=== PATIENT | female | born 1980 | race Caucasian/White ===

== ENCOUNTER 2016-12-06 21:56 | Emergency (ER) | payer OTHER ==
[2016-12-06 22:02] VITALS: BP 152/84
--- NOTE | 2016-12-06 22:20 | PROVIDER DOCUMENTATION ---
HPI-Musculoskeletal Pain/Inj - GENERAL Chief Complaint: Extremity Pain Stated Complaint: LT HAND SWOLLEN Time Seen by Provider: 12/06/16 22:11 Source: patient - HX OF PRESENT ILLNESS-MUSKULOSKELTAL Nature of Presenting Problem: 36 y/o F with history of no chronic medical problems presents with left hand pain x 1 day. Last night before bed noticed tenderness of the left hand. Pain became worse today with numbness/tingling of 4th and 5th fingers that lasted approx 1 hour and has now completely resolved. Pain is radiating into left forearm. Immobilization improves pain, movement worsens. Took aleve at home with no relief. No history of injury or trauma, but patient does admit to resting her left elbow on the car door when smoking while driving frequently. Quality of Pain: reports: aching Severity in ED: moderate Onset/Duration: 24 hours ago Timing: still present Modifying Factors: improves with: immobilization (improves), movement (worsens) Any recent injury?: No Review of Systems - Adult - REVIEW OF SYSTEMS - ADULT Constitutional: reports: no symptoms reported. denies: chills, fever Eyes: reports: no symptoms reported Ears, Nose, Mouth & Throat: reports: no symptoms reported Cardiovascular: reports: no symptoms reported. denies: chest pain Respiratory: reports: no symptoms reported. denies: cough, shortness of breath Gastrointestinal: reports: no symptoms reported. denies: abdominal pain, nausea , vomiting Genitourinary: reports: no symptoms reported. denies: dysuria, discharge Musculoskeletal: reports: see HPI Integumentary: reports: no symptoms reported. denies: itching, rash, skin sores /ulcer Neurological: reports: see HPI Psychiatric: reports: no symptoms reported Endocrine: reports: no symptoms reported Hematologic/Lymphatic: reports: no symptoms reported Allergic/Immunologic: reports: no symptoms reported All Other Systems: Reviewed and Negative Past History - Adult - PAST MEDICAL HISTORY-ADULT Review of Records: reports: Nursing Assessment Review, Medications Reviewed Major Childhood Illnesses: reports: denies history Cardiovascular: reports: HTN Respiratory: reports: denies history Gastrointestinal: reports: denies history Obstetrical/Gynecological: reports: denies history Genitourinary: reports: denies history Musculoskeletal: reports: intervertebral disc disease Neurological: reports: headaches/migraines Endocrine/Immune: reports: denies history Other Conditions: reports: denies history - PRIOR SURGERIES/PROCEDURES Surgical/Procedure History: reports: - IMMUNIZATION STATUS Childhood Immunizations: See Nurse Assessment Physical Exam-Injury Related - Physical Exam-Injury Related Initial Vital Signs Reviewed: Yes General Appearance: appears well, alert, no apparent distress Eyes: PERRL/EOMI, pink conjunctivae Head, Ears, Nose, Mouth & Throat: normocephalic/atraumatic, moist mucous membranes, normal ENT inspection Neck: non-tender, full range of motion, supple, normal inspection Respiratory: chest non-tender, lungs clear, normal breath sounds, no pleuratic chest pain, no respiratory distress, no accessory muscle use Cardiovascular: normal peripheral pulses, regular rate, rhythm, no edema Peripheral Pulses: radial (R): 2+, radial (L): 2+ Lymphatic: no adenopathy Back Exam: no vertebral tenderness Extremity: other (generalized tenderness of left hand and over lateral aspect of elbow. Normal strength and sensation.) Progress - PLAN OF CARE/RESULTS Progress/Plan/Lab Results: Orders Category Date Time Status Tramadol [Ultram] Med 12/06/16 22:45 Discontinued 50 mg PO NOW ONE Vital Signs Temp Pulse Resp BP Pulse Ox 12/06/16 22:01 98.7 F 79 14 152/84 100 naproxen Allergy (Verified 12/06/16 22:38) RASH prednisone Allergy (Verified 12/06/16 22:38) VOMITING Meloxicam [Mobic] 15 mg PO DAILY #10 tablet 12/06/16 Methylprednisolone [Medrol Dosepak] 4 mg PO DIRECTED #1 package 12/06/16 Omeprazole 20 mg PO DAILY #14 capsule. 12/06/16 Symptoms consistent with ulnar nerve pain, possibly from resting her arm on the car door while driving. Counseled patient to not rest her elbow on hard surfaces and to follow up with ortho. Patient has naproxen and prednisone listed as allergies but she denies any true allergic reaction, stating she had side effect of stomach upset. Considering history of upset stomach with high doses of nsaids and prednisone will provide omeprazole and counseled to take with food. Departure - Departure Time of Disposition Order: 22:32 DIAGNOSIS: Right hand pain Disposition: HOME 01 Certified Medical Emergency: Emergent Condition: Good Additional Instructions: ED Follow Up Instructions: You have been treated by a care provider in the Emergency Department. These instructions are being provided to you so you can have an understanding of how to care for yourself upon discharge. Upon discharge from the Emergency Department, you are responsible for making arrangements for follow-up care by a physician of your choice. Take all prescribed medications as directed. Return to the Emergency Department immediately for any new or worsening symptoms. You may call the Physician Referral phone number at [phone] to obtain a list of Physicians who are taking new patients. Prescriptions: Methylprednisolone [Medrol Dosepak] 4 mg PO DIRECTED #1 package Meloxicam [Mobic] 15 mg PO DAILY #10 tablet Omeprazole 20 mg PO DAILY #14 capsule.dr Referrals: None,PCP [Primary Care Provider] - Delvin Culp MD [STAFF PHYSICIAN] - Instructions: Musculoskeletal Pain, Pain Without a Known Cause Attestation - Physician/ [facility] Attestation Patient care was provided by Advanced Practice Provider:: Yes Advanced Practice Provider:: Jeanne Covington Advanced Practice Provider documentation review:: The Mid-level provider documentation, treatment plan and medical decision making was reviewed by the physician who agrees with all treatment and medical decision making by the MLP.
[2016-12-06] MEDS ORDERED: ULTRAM PO ONE (22:45)
== END 2016-12-06 23:00 | disposition home or self-care (01) ==
LOC: ED 21:56
DX: M79.642 Pain in left hand (principal); R22.32 Localized swelling, mass and lump, left upper limb; R20.0 Anesthesia of skin; R20.2 Paresthesia of skin; M79.632 Pain in left forearm; M25.522 Pain in left elbow; I10 Essential (primary) hypertension